=== PATIENT | male | born 1930 | race Caucasian/White ===

== ENCOUNTER 2016-06-17 06:56 | Day surgery (SDC) | payer MEDICARE ==
--- NOTE | 2016-05-25 14:11 | PCM.ANEPRE ---
Anesthesia Pre-Op Review Reason for Review: cardiac hx, CKD Anesthesia Recommendations: Proceed with Procedure Additional Comments Mr Dixon is an 85 y/o M who presented to the ED with urinary obstruction, relieved with lowery catheter, for TURP on 05/26/16. 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 Of note, he is DNR, and per notes, is focussed on comfort measures only; stating uninterested in dialysis if it were needed, uninterested in further cardiac workup including ECHO or stress test. He has <4 METS, but is having a low risk surgical procedure (and refused cardiac workup) and therefore, from a cardiac optimization for ischemia stand point, there is no further need for workup. More interesting, though, is a CXR from 04/20/16 during his presentation to [facility] for urinary retention, demonstrating b/l ground glass opacities likely representing fluid overload, vs infectious process. Of note, at this time he had normal WBC (7) though 79% neurtophils, nearly representing a left shift, and a normal BNP, making fluid overload less likely a concern, and making an infectious process more likely. However, there is no mention of fever , sputum, hypoxemia. And to my knowlege, has not presented for worsening PNA- like symptoms. At this point, I would NOT cancel surgery empirically based on chart review alone. He does not need further cardiac workup to proceed to this low risk surgical procedure. However, if he presents with hypoxemia tomorrow, or looks clinically ill with a respiratory infection, or in heart failure on physical exam, it would be very reasonable to cancel the case for workup of HF vs PNA, instead of proceeding with surgery. Thank you for this interesting consultation. Jamin Warner, Anesthesia Jamin Warner MD May 25, 2016 14:11
--- NOTE | 2016-06-16 14:56 | PCM.ANEPRE ---
Anesthesia Pre-Op Review Reason for Review: cardiac hx, CKD, EF 35-40%, hx CHF with recent ER visits x 2 for urin obstr Anesthesia Recommendations: Proceed with Procedure Additional Comments Anesthesia Pre-Op Review from 05/25/16 Reason for Review: cardiac hx, CKD Anesthesia Recommendations: Proceed with Procedure Additional Comments Mr Dixon is an 85 y/o M who presented to the ED with urinary obstruction, relieved with lowery catheter, for TURP on 05/26/16. 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 Of note, he is DNR, and per notes, is focussed on comfort measures only; stating uninterested in dialysis if it were needed, uninterested in further cardiac workup including ECHO or stress test. He has <4 METS, but is having a low risk surgical procedure (and refused cardiac workup) and therefore, from a cardiac optimization for ischemia stand point, there is no further need for workup. More interesting, though, is a CXR from 04/20/16 during his presentation to [facility] for urinary retention, demonstrating b/l ground glass opacities likely representing fluid overload, vs infectious process. Of note, at this time he had normal WBC (7) though 79% neurtophils, nearly representing a left shift, and a normal BNP, making fluid overload less likely a concern, and making an infectious process more likely. However, there is no mention of fever , sputum, hypoxemia. And to my knowlege, has not presented for worsening PNA- like symptoms. At this point, I would NOT cancel surgery empirically based on chart review alone. He does not need further cardiac workup to proceed to this low risk surgical procedure. 06/16/16-called the rehab facility and talked with the nurse practitioner; chest is clear and pt spo2 is >95% on room air. He appears euvolemic and has no sx or signs of infectious pulmonary process. Discussed with Dr Gimenez who will be doing the case tomorrow and usual DOS review. Ok to proceed Chart Reviewed by: Messi Shoemaker MD, MD Jun 16, 2016 14:56
[~2016-06-17] VITALS: Ht 167.6 cm; Wt 92.3 kg
[2016-06-17] VITALS (15 sets, daily range): BP systolic 80–173; BP diastolic 42–90; PULSE 55–72; RESP 13–18; O2SAT 93–100
[~2016-06-17 06:56] MED LIST: ASPI-973 PO; CeFAZolin Inj 2 GM in IV Premix 1 EACH IV ONE; FURO-128 PO; Gentamicin Inj 120 MG in Dextrose 5% 50 ML IV ONE; HYDR-4003 PO; Lactated Ringer's 1,000 ML IV SCH; METO25TA6 PO; ZYL100 PO
[2016-06-17] MEDS ORDERED: CLOB15CR3 TOP (07:51)
[2016-06-17] MEDS: Lactated Ringer's 1,000 ML IV SCH ×3 (08:00→12:57)
--- NOTE | 2016-06-17 09:17 | PCM.HPANE ---
Patient Data Surgeon Admitting Provider: Attending Provider:Prisca Zurita MD Primary Care Physician:Alicia Benoit Pa-C Other Provider:Gregg Oneal Anesthesia Reason for Visit Urinary Retention Ht/WT & BMI Height (Feet): 5 Height (Inches): 6.00 Weight (Kilograms): 87.540 Body Mass Index 31.00 Allergies Coded Allergies: No Known Allergies (Unverified , 05/25/16) Past Anesthesia History Anesthesia History: Denies:: Anesthesia Reactions Diabetes History Hx Diabetes?: No Type of Diabetes: Type II Glycemic Control: Oral Medication Medications Hypertension Medication: Yes Home Meds Incl Beta Nara: Yes Date Beta Nara Taken: Jun 16, 2016 Reported Medications Clobetasol Propionate/Emoll (Clobetasol Emollient 0.05% Crm)15 Gm Cream..g.1 Appl TOP TID #1 TUBE 06/17/16 Metoprolol Tartrate 25 Mg Sgjaoh14.5 Mg PO BID 30 Days Ref 0 05/25/16 Furosemide (Lasix)40 Mg [id number] Mg PO DAILY 30 Days Ref 0 05/25/16 Hydrocodone-Acetaminophen 5-325 mg 1 Each Tablet1 Tablet PO Q4H PRN For Pain Ref 0 05/25/16 Aspirin 81 Mg [id number] Mg PO DAILY Ref 0 05/25/16 Allopurinol 100 Mg [id number] Mg PO DAILY Ref 0 05/25/16 History History of ENT Problems?: No Hx of Heart Problems?: Yes Cardiovascular History: Positive for:: Cardiac Surgery (CABG x 4, stents) Congestive Heart Failure Coronary Artery Disease Heart Murmur Hypertension Hx of Respiratory Problem?: Yes Respiratory History: Positive for:: Chest Surgery (CABG) Dyspnea Pneumonia (recent treatment for) Denies:: Oxygen Administration Use of C-PAP Machine Hx Neurologic Problems?: No Neurological History: Denies:: CVA Multiple Sclerosis Parkinson's Disease Seizures Hx of GI Problems?: No Hx of Problems?: Yes Genitourinary History: Denies:: Kidney Stones Other Pertinent History: indwelling lowery currently- clots and hematuria Male Hx: Positive for:: Prostate Problems (urinary retention current admission problem) Skin History: Positive for:: History Skin Disorders? (chronic venous stasis dermatitis, eczema) Hx Musculoskeletal Problems?: Yes Hx of Psycho/Social Problems?: No Hx Surgeries?: Yes (CABG) Hx Any Other Health Problems?: Yes Other History: Denies:: Cancer Thyroid Disease Hx Diabetes: No Hx Alcohol Use: NoHx Substance Use: No Smoking Status: Former Smoker Have You Smoked inLast 12 mo: No Stop/Bang P-Blood Pressure: treated: Yes B- Body Mass Index > 35 kg/m2: No A- Age over 50: Yes N- Neck Large Circumference: No G- Gender Male: Yes SEMAJ Risk Assessment: Low Risk, <3 Yes Risk Assessment Category Category 1A: Patient has history of documented sleep apnea, and HAS NOT received any narcotic, sedative or anesthesia administration during this stay. Category 1B: Patient has history of documented sleep apnea, and HAS received any narcotic , sedative or anesthesia administration during this stay Category 2: Patient has SUSPECTED Obstructive Sleep Apnea, and HAS received any narcotic , sedative or anesthesia administration during this stay. Category 3: Patient has SUSPECTED Obstructive Sleep Apnea and HAS NOT received narcotic, sedative or anesthesia administration during this stay. Category 4: Outpatient in Procedural Areas with known sleep apnea or who screen positive for High Risk via the STOP/BANG questionnaire. Exam Exam Vital Signs Vital Signs Date Time Temp Pulse Resp B/P Pulse Ox O2 Delivery O2 Flow Rate FiO2 06/17/16 07:21 36.2 69 16 167/64 94 Room Air General Appearance: Alert, Oriented X3, Cooperative, No Acute Distress HEENT/AIRWAY: MP 2 Lungs: Clear to Auscultation, Normal Air Movement Heart: Exam Unremarkable, Regular Rate/Rhythm, No Murmurs/Rubs/Gallops Meds/Labs/Diagnostics Admission Meds Current Medications Lactated Ringer's (Lr) 1,000 ml @ 120 mls/hr Q8H20M IV Last administered on t 08:00; Start 06/17/16 at 05:00; Stop 06/17/16 at 13:19 Plan Impression Patient chart reviewed, patient interviewed and anesthestic plan with risks, benefits, and alternatives discussed, and informed consent obtained. NPO Status: mn ASA Physical Status: ASA3 Severe Disease Anesthetic Plan: SAB Bene/Risks/Altern/Consents: Yes HP Complete Prior to Induction: Yes Other beta nara 06/16 Wolfgang Gimenez MD Jun 17, 2016 09:17
[2016-06-17] MEDS ORDERED: Lactated Ringer's 1,000 ML IV SCH (09:18)
[2016-06-17] MEDS ORDERED: Lactated Ringer's 500 ML IV PRN (09:18)
[2016-06-17] MEDS ORDERED: Phenylephrine 10,000 mCg/mL Inj IVPUSH PRN (09:20)
[2016-06-17] MEDS ORDERED: MetoCLOpramide 5 mg/mL 2 mL Inj IVPUSH PRN (09:20)
[2016-06-17] MEDS ORDERED: EPHEDrine Sulfate 50 mg/mL Inj IVPUSH PRN (09:20)
[2016-06-17] MEDS ORDERED: HYDROmorphone 1 mg/mL Inj IVPUSH PRN (09:20)
[2016-06-17] MEDS ORDERED: hydrALAZINE 20 mg/mL Inj IVPUSH PRN (09:20)
[2016-06-17] MEDS ORDERED: Atropine 0.4 mg/mL Inj IVPUSH PRN (09:20)
[2016-06-17] MEDS ORDERED: Labetalol 5 mg/mL 4 mL Inj IV PRN (09:20)
[2016-06-17] MEDS ORDERED: Ondansetron 2 mg/mL 2 mL Inj IVPUSH PRN (09:20)
[2016-06-17] MEDS ORDERED: fentaNYL-PF 50 mCg/mL 2 mL Inj IVPUSH PRN (09:20)
[2016-06-17] MEDS ORDERED: Dexamethasone 4 mg/mL Inj IVPUSH PRN (09:20)
[2016-06-17] MEDS ORDERED: Belladonna Alk-Opium 60 mg Rectal Suppository RECTAL PRN (10:00)
[2016-06-17] MEDS ORDERED: Polyethylene Glycol (PEG) 17 Gm Powder PO PRN (10:00)
[2016-06-17] MEDS ORDERED: HYDROcodone-APAP 5-325 mg Tablet PO PRN ×2 (10:00→13:10)
[2016-06-17] MEDS ORDERED: EPHEDrine/NS 5 mg/mL 5 mL Syringe ONE (10:08)
--- NOTE | 2016-06-17 10:12 | PCM.ANEP1 ---
Post Anesthesia Phase 1 PACU Phase 1 Assessment Vital Signs Vital Signs Date Time Temp Pulse Resp B/P Pulse Ox O2 Delivery O2 Flow Rate FiO2 06/17/16 10:00 62 15 91/47 100 Simple Mask 10 06/17/16 09:55 55 14 92/43 100 Simple Mask 10 06/17/16 09:50 37.3 59 14 87/42 100 Simple Mask 10 06/17/16 07:21 36.2 69 16 167/64 94 Room Air Anesthetic Administered: SAB Level of Alertness: Awake, talking GARNETT's with Equal Strength: No Pain: No Nausea or Vomiting: No Oxygen Delivery: Simple Mask Lungs: Clear to Auscultation, Normal Air Movement Wolfgang Gimenez MD Jun 17, 2016 10:12
--- NOTE | 2016-06-17 11:16 | OP ---
[address] [address] OPERATIVE REPORT PATIENT: AKASH FONSECA : 1930 MR#: [id number] ADMIT: 06/17/2016 JOB ID: [id number] DATE OF SURGERY: 06/17/2016 SURGEON: Prisca Zurita MD PREOPERATIVE DIAGNOSIS(ES): 1. Benign prostatic hypertrophy. 2. Urinary retention. POSTOPERATIVE DIAGNOSIS(ES): PROCEDURE: Transurethral resection of prostate. DESCRIPTION OF PROCEDURE: Under spinal anesthetic, the patient was placed in lithotomy position. Genitalia prepped and draped in a sterile manner. The urethra was dilated to 30-Turkish with Duyen sounds. A 26-Turkish resectoscope was introduced into the bladder. Bladder was grossly trabeculated. There was bilobar hyperplasia with no significant middle lobe. Prostate was resected circumferentially to the capsule. On the right side there was significant hemorrhage and necrosis. The remainder the gland was unremarkable. After removal of chips and achieving hemostasis, a 24-Turkish 3-way Rene catheter was inserted. The patient tolerated the procedure well. ESTIMATED BLOOD LOSS: Less than 50 cc. DISPOSITION: The patient left the operating room in good condition with clear saline irrigations.u
--- NOTE | 2016-06-17 11:59 | PCM.ANEP2 ---
Post Anesthesia Evaluation ASA/CMS Post Anesthesia VS in Patient's Normal Range?: Yes Resp Stable; Airway Patent?: Yes CV Function & Hydration Stable: Yes Mental Status Recovered?: Yes Pain control Satisfactory?: Yes N/V Control Satisfactory?: Yes Wolfgang Gimenez MD Jun 17, 2016 11:59
--- NOTE | 2016-06-17 14:29 | PCM.CHPMED ---
Subjective Date of Service: Jun 17, 2016 Provider requesting consult: Prisca Zurita MD Primary Physician: Admitting Physician: Primary Care Physician: Alicia Benoit Pa-C Attending Physician: Prisca Zurita MD Chief Complaint: Chief Complaint: postop medical management History of Present Illness: 85 y/o M with multiple comorbidities including CHF, DM, CKD, CAD s/p CABG came in for same day surgery, underwent TURP due to BPH by today, hospitalist service was asked to manage medical problems. pt stated that he feels great after the surgery, denied difficulty breathing, cough, sputum. Patient was not in pain. Of note. pt was scheduled for elective TURP about a month ago, however, it was delayed until today. Pt stated that he was treated for pneumonia with antibiotics, finished taking 10days. pt denied any fever, chills at home. pt did endorse difficulty of sleeping due to no easy a poor respiratory sounds. also has orthopnea, PND, always had to elevated his HOB, ET-unchanged easily short of breath with daily activity, pt doesn't do any vigorous exercise, denied gaining wt, rather loosing wt due to poor appetite, no increase in abdominal girdle. pt tries to take lasix every day but sometime forgets post PACU, vs stable, BP 140s, 68, 15, 94% on RA. Review of Systems: Pertinent positives as noted in history of present illness. All other systems were reviewed and are negative PMH Past Medical History CKD HTN BPH CAD s/p CABG chronic back pain Surgical History CABG about 8yrs ago Home Medications Allopurinol 100 mg tablet daily Aspirin 81 mg daily Atorvastatin 40 mg daily Rj-Citrate Glipizide 12.5 mg extended release twice a day Hydralazine 10 mg 3 times a day [place] one tablet every 4 hours as needed Imdur ER 30 mg daily Lasix 40 mg daily Metoprolol succinate extended release 12.5 mg bid Allergies: Coded Allergies: onion (Verified Adverse Reaction, Intermediate, Nausea,Vomiting, 06/17/16) Family History Family History no CAD Social History Hx Alcohol Use: NoHx Substance Use: No Smoking Status: Former Smoker Exam Vital Signs Vital Sign - Last Date Time Temp Pulse Resp B/P Pulse Ox O2 Delivery O2 Flow Rate FiO2 06/17/16 12:17 36.3 68 16 146/71 94 Room Air 06/17/16 10:05 10 Additional Information: NAD, comfortably laying down on the bed no JVD, MMM, no LAD RRR, nl s1, s2 no mrg CTAB, no w,c S,ND,mildly tender on surgical site warm, no edema, pulses 2/[address] Assessment & Plan Assessment 85 y/o M with multiple comorbidities including CHF, DM, CKD, CAD s/p CABG came in for same day surgery, underwent TURP due to BPH by today, hospitalist service was asked to manage medical problems. pt looked stable without any symptoms of respiratory distress, exam showed euvolemic status. acute, active #BPH s/p TURP on 06/17, POA, no immediate post op Cx -appreciate primary team for regular postop care to manage pain, dvt ppx, diet #hx of CHF, presumed ischemic, hx of CABG remotely, clinically euvolemic, no active chest pain, good oxygenation postop -resume home BB, lasix, lipitor, imdur, will defer primary team for timing of aspirin, no critical ix noticed. -monitor respiratory sx closely given hx of CHF, recent tx for PNA, especially given -O2 supplement as needed target >95% #insomnia with complaints of upper raspatory sounds, possibly suggestive of SEMAJ -will monitor at night, may try empiric CPAP if indicated. chronic, stable #HTN, stable, will continue BB< hydralazine #DM, will do lisproSS with fsg qac, hold oral agents. #CKD, continiue allopurinol dispo: Patient is admitted under observation status with expectation that she will be discharged within 24-48 hours, pt will likely be going back home if patient remains to be stable diet:advance per surgery dvt ppx: SCD DNR/DNI/comfort measure only per POLST in the chart Thank you for allowing me to assess patient, hospitalist service will continue to follow Problems: Time spent 65 minutes Renetta Farah MD Jun 17, 2016 13:18
[2016-06-17] MEDS: Clobetasol Prop 0.05% 15 Gm Ointment TOPICAL SCH ×2 (14:30→21:59)
[2016-06-17] MEDS ORDERED: Glucose 40% Oral Gel 15 Gm Tube PO PRN (14:35)
[2016-06-17] MEDS: Insulin LISPRO 300 Unit/3 mL Inj SUBQ SCH ×2 (17:30→22:00)
--- NOTE | 2016-06-17 19:57 | NUR ---
Post Op/pain Patient arrived from pacu s/p Turp. Patient has 3 way Rene with continuous irrigation running. Pt with increased pain at one point , Vicodin given but was not effective enough. Pt with spasms so B&O Supp given by charge nurse and manual irrigation done to check for blood clots. Patient with bloody drainage leaking around meatus. Pt tends to moan even in his sleep so pain rating is difficult.
[2016-06-18 04:21] VITALS: BP 164/76; PULSE 72; RESP 20; O2SAT 93
--- NOTE | 2016-06-18 06:09 | NUR ---
pain patient continuously moaned in his sleep all through the night. every time nurse woke him up and asked him if he was in pain he emphatically denied being in pain. he said the pain was "all gone" and he denied the need for pain medication. pt has been alert and oriented x3 but forgetful. this AM he appears more anxious. has tried to remove his catheter a couple of times saying that the doctor said he can go home today. 3 way lowery is still in place. urine is light pink with no clots. he has not required manual irrigation this shift. pt is still having a moderate amount of blood from his meatus. will continue to monitor.
[2016-06-18 06:26] LABS: BASOPHILS % (AUTO) 0.3 % (0-3); EOSINOPHILS % (AUTO) 2.3 % (0-5); MONOCYTES % (AUTO) 6.7 % (4-12); Mean Corpuscular Hemoglobin 27.5 pg (27.0-35.0); NEUTROPHILS % (AUTO) 83.7 % (40-74); Platelet Count 181 bil/L (150-400)
[2016-06-18 06:35] LABS: Magnesium 2.1 mg/dL (1.6-2.6); Phosphorus 4.1 mg/dL (2.5-4.9)
[2016-06-18] MEDS ORDERED: Isosorbide Mononitrate 30 mg ER24 Tablet PO SCH (07:30)
[2016-06-18] MEDS: Insulin LISPRO 300 Unit/3 mL Inj SUBQ SCH ×2 (08:00→12:00)
--- NOTE | 2016-06-18 08:22 | PROG NOTE ---
[address] [address] PROGRESS NOTE PATIENT: AKASH FONSECA : 1930 MR#: [id number] ADMIT: 06/17/2016 JOB ID: [id number] DATE: 06/18/2016 SUBJECTIVE: Postop day one TURP. The patient was admitted yesterday to [facility] for an elective TURP. This morning his irrigations are clear. Hematocrit stable. Plan is to discharge him to [facility] today with the catheter in. I will see him next Tuesday in the office for a trial of voiding.
[2016-06-18] MEDS ORDERED: Calcitonin 200 IU 3.7 mL Nasal Spray NASAL SCH (08:30)
[2016-06-18 08:33] VITALS: BP 173/97; PULSE 83; RESP 18; O2SAT 91
[2016-06-18] MEDS: Clobetasol Prop 0.05% 15 Gm Ointment TOPICAL SCH ×2 (09:06→14:46)
[2016-06-18 10:52] VITALS: BP 149/70; PULSE 74; RESP 17; O2SAT 94
[2016-06-18] MEDS ORDERED: ISOS30TA4 PO (11:04)
[2016-06-18] MEDS ORDERED: ATOR40TA69 PO (11:04)
[2016-06-18] MEDS ORDERED: HYDR-3938 PO (11:04)
--- NOTE | 2016-06-18 11:08 | PCM.DIMED ---
Discharge Instructions Date of Service Jun 18, 2016 Dates of Hospitalization 06/17/2016 Discharge Diagnosis Discharge Diagnosis s/p TURP CKD HTN BPH CAD s/p CABG chronic back pain Diet No restrictions Activity No restrictions Patient Instructions You were hospitalized with elective surgery for your prostate, underwent surgery well, no complications developed. Instruction for SNF> Please keep the lowery catheter until he sees Urologist in the clinic Please control pain with tylenol, percocet, NSAID Follow-up plan Please follow up with in his office in 06/22 for a trial of voiding. Follow-up Provider: Prisca Zurita MD Follow-up with PCP in: 1 week Renetta Farah MD Jun 18, 2016 11:05
--- NOTE | 2016-06-18 13:54 | NUR ---
Spoke with Apollo Jenkins at [facility] this patient comes from them and we are planning on having patient return there today. Updated MEAT SPECIALIST
--- NOTE | 2016-06-18 15:04 | NUR ---
Social Work: Discharge SW spoke with patient's NOKLorena and notified her that the patient would transfer back to [facility] today. She voiced understanding and was in agreement. SW also notified NOK that patient was seen by wound care and that wound care [email or web address] would be faxed to the facility. Cathy Lopez, MULU, ACM
--- NOTE | 2016-06-18 15:58 | NUR ---
Discharge To [facility] via cabulance at 15:57. IV discontinued intact, Rene in place per MD. Report phoned to Apollo. All belongings sent with pt.
--- NOTE | 2016-06-20 20:42 | PCM.DC.MED ---
Discharge Summary Date of Service Jun 18, 2016 Dates of Hospitalization Date of Hospital Admission Date of Discharge: Jun 18, 2016 Providers: Admitting Physician: Primary Care Physician: Alicia Benoit Pa-C Attending Physician: Prisca Zurita MD Diagnosis at Time of Discharge Diagnosis at Time of Discharge s/p TURP CKD HTN BPH CAD s/p CABG chronic back pain Consultations Urology Brief History HPI obtained on 06/16 85 y/o M with multiple comorbidities including CHF, DM, CKD, CAD s/p CABG came in for same day surgery, underwent TURP due to BPH by today, hospitalist service was asked to manage medical problems. pt stated that he feels great after the surgery, denied difficulty breathing, cough, sputum. Patient was not in pain. Of note. pt was scheduled for elective TURP about a month ago, however, it was delayed until today. Pt stated that he was treated for pneumonia with antibiotics, finished taking 10days. pt denied any fever, chills at home. pt did endorse difficulty of sleeping due to no easy a poor respiratory sounds. also has orthopnea, PND, always had to elevated his HOB, ET-unchanged easily short of breath with daily activity, pt doesn't do any vigorous exercise, denied gaining wt, rather loosing wt due to poor appetite, no increase in abdominal girdle. pt tries to take lasix every day but sometime forgets post PACU, vs stable, BP 140s, 68, 15, 94% on RA. Hospital Course 85 y/o M with multiple comorbidities including CHF, DM, CKD, CAD s/p CABG came in for same day surgery, underwent TURP due to BPH by today, hospitalist service was asked to manage medical problems. pt looked stable without any symptoms of respiratory distress, exam showed euvolemic status. acute problems #BPH s/p TURP on 06/17, POA, no immediate post op Cx, pt was monitored closely in the hospital for one day, didn't develop any complications, respiratory status remained stable, discharged on stable condition with lowery cather, with follow up with Urology in the clinic #chronic systolic CHF, presumed ischemic, hx of CABG remotely, clinically euvolemic, no active chest pain, maintained good oxygenation postoperatively. resumed home home BB, lasix, lipitor, imdur, aspirin. chronic, stable #HTN, stable, #DM, controlled with lisproSS #CKD, continiued allopurinol Exam Vital Signs (Last) Date Time Temp Pulse Resp B/P Pulse Ox O2 Delivery O2 Flow Rate FiO2 06/18/16 10:52 36.3 74 17 149/70 94 Room Air 06/17/16 10:05 10 Exam NAD, comfortably laying down on the bed no JVD, MMM, no LAD RRR, nl s1, s2 no mrg CTAB, no w,c S,ND,mildly tender on surgical site warm, no edema, pulses 2/[address] Test 06/17/16 21:35 06/18/16 05:50 Prealbumin 17mg/dL (20-40) Hold Kim Top Tube Received (Received) White Blood Count 7.5th/mm3 (3.8-10.1) Red Blood Count 5.02mil/mm3 (4.40-5.80) Hemoglobin 13.8g/dL (13.8-17.2) Hematocrit 44.2% (41.0-50.0) Mean Corpuscular Volume 88.0fL (81-100) Mean Corpuscular Hemoglobin 27.5pg (27.0-35.0) Mean Corpuscular Hemoglobin Concent 31.2% (32.0-37.0) Red Cell Distribution Width 16.2% (12.3-15.4) Platelet Count 181bil/L (150-400) Neutrophils (%) (Auto) 83.7% (40-74) Lymphocytes (%) (Auto) 6.9% (14-46) Monocytes (%) (Auto) 6.7% (4-12) Eosinophils (%) (Auto) 2.3% (0-5) Basophils (%) (Auto) 0.3% (0-3) Sodium Level 144mEq/L (134-144) Potassium Level 5.1mEq/L (3.5-5.2) Chloride Level 107mEq/L (97-108) Carbon Dioxide Level 23mmol/L (18-29) Blood Urea Nitrogen 42mg/dL (8-27) Creatinine 2.30mg/dL (0.76-1.27) Estimat Glomerular Filtration Rate 29mL/min (>59) Glucose Level 163mg/dL (60-99) Calcium Level 8.3mg/dL (8.5-10.1) Phosphorus Level 4.1mg/dL (2.5-4.9) Magnesium Level 2.1mg/dL (1.6-2.6) Total Bilirubin 0.6mg/dL (0.0-1.2) Aspartate Amino Transf (AST/SGOT) 17U/L (0-50) Alanine Aminotransferase (ALT/SGPT) 10U/L (0-44) Alkaline Phosphatase 74U/L (25-160) Total Protein 5.9g/dL (6.4-8.4) Albumin 3.4g/dL (3.4-5.0) Discharge Medications Discharge Medications Allopurinol (Allopurinol) 100 Mg Tablet 100 MG PO DAILY (Reported) Aspirin (Aspirin) 81 Mg Tablet 81 MG PO DAILY (Reported) Atorvastatin Calcium (Atorvastatin Calcium) 40 Mg Tablet 40 MG PO HS Prescribed by: NAYELI MARY MD Clobetasol Propionate/Emoll (Clobetasol Emollient 0.05% Crm) 15 Gm Cream..g. 1 APPL TOP TID (Reported) Furosemide (Lasix) 40 Mg Tablet 40 MG PO DAILY (Reported) Hydralazine (Hydralazine) 10 Mg Tablet 10 MG PO TID Prescribed by: NAYELI MARY MD Isosorbide MN ER (Isosorbide MN ER) 30 Mg Tab.er.24h 30 MG PO 0730 Prescribed by: NAYELI MARY MD Metoprolol Tartrate (Metoprolol Tartrate) 25 Mg Tablet 12.5 MG PO BID (Reported ) As needed Hydrocodone-Acetaminophen 5-325 mg (Hydrocodone-Acetaminophen 5-325 mg) 1 Each Tablet 1 TABLET PO Q4H PRN PRN For Pain (Reported) Followup Plan Disposition: home Follow-up plan Please follow up with in his office in 06/22 for a trial of voiding. Discharge Diet: No restrictions Discharge Activity: No restrictions Patient Instructions You were hospitalized with elective surgery for your prostate, underwent surgery well, no complications developed. Instruction for SNF> Please keep the lowery catheter until he sees Urologist in the clinic Please control pain with tylenol, percocet, NSAID Follow-up Provider: Prisca Zurita MD Follow-up with PCP in: 1 week Time spent 65min Nayeli Mary MD Jun 20, 2016 20:42
--- NOTE | 2016-06-21 12:17 | PATH ---
SURGICAL PATHOLOGY Attending Physician:Prisca Zurita MD () CASE STATUS: Signed Out PATIENT NAME: AKASH FONSECA PID: [id number] : 1930 DATE COLLECTED:06/17/2016 15:36 SPECIMEN: Prostate, Chips CLINICAL HISTORY: URINARY RETENTION 1). 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 NO EVIDENCE OF MALIGNANCY. ICD10 CODE N40.1 GROSS DESCRIPTION: The specimen is received in formalin, labeled with the patient's name, sublabeled as resected prostate, and consists of multiple fragments of rhodes-pink rubbery prostatic tissue (16.8 g, 7.5 x 5.5 x 1.2 cm in aggregate). Section code: (A-H) prostatic tissue, insurance claims representative. 06/17/16 MICRO DESCRIPTION: See diagnosis. ICD-9 CODES: CPT CODES: 1: 95215 Electronically Signed Out Hong Marie MD [facility] [address], [place] [address] Technical component performed at [facility], [facility] [address], [place], [address]
== END 2016-06-18 15:57 | disposition home or self-care (01) ==
LOC: SAS 06:56 → OSC 11:18 → SAS 06-18 15:57
PROVIDERS: ATTEND Urology
PROC: 0VT04ZZ Resection of Prostate, Percutaneous Endoscopic Approach (ICD-10-PCS; principal; 2016-06-17 09:00)
DX: N40.1 Benign prostatic hyperplasia with lower urinary tract symptoms (principal); R33.8 Other retention of urine; N39.43 Post-void dribbling; R35.0 Frequency of micturition; R35.1 Nocturia; I50.22 Chronic systolic (congestive) heart failure; E11.22 Type 2 diabetes mellitus with diabetic chronic kidney disease; I12.9 Hypertensive chronic kidney disease with stage 1 through stage 4 chronic kidney disease, or unspecified chronic kidney disease; N18.4 Chronic kidney disease, stage 4 (severe); Z87.891 Personal history of nicotine dependence; Z79.84 Long term (current) use of oral hypoglycemic drugs; Z79.82 Long term (current) use of aspirin; I25.10 Atherosclerotic heart disease of native coronary artery without angina pectoris; Z95.1 Presence of aortocoronary bypass graft; G47.00 Insomnia, unspecified; Z66 Do not resuscitate
CPT/HCPCS: 36415; 52601; 80053; 82040; 83735; 84100; 84134; 85025; J1580; J1815; J7120